=== PATIENT | female | born 1975 | race Caucasian/White ===

== ENCOUNTER → 2020-03-23 12:21 | Outpatient (CLI) | payer OTHER, MEDICAID, SELFPAY ==
[2020-03-23 13:31] LABS: Cholesterol 185 mg/dL (140-199); Glucose 80 mg/dL (70-100); HDL Cholesterol 52 mg/dL (40-60); LDL Cholesterol Calculated 114 mg/dL (<100); Triglycerides 93 mg/dL (35-150)
== END ==
PROVIDERS: PCP Family Medicine; Referring Provider Family Medicine; Visit Provider Family Medicine
DX: Z13.220 Encounter for screening for lipoid disorders (principal); Z13.1 Encounter for screening for diabetes mellitus
CPT/HCPCS: 36415; 80061; 82947

== ENCOUNTER → 2020-07-30 08:54 | Outpatient (CLI) | payer OTHER, MEDICAID, SELFPAY ==
[2020-07-30] MEDS: COVID-19 VACC, Ad26(JANSSEN)/PF 0.5 ML IM (08:59)
== END ==
PROVIDERS: PCP Family Medicine; Visit Provider Internal Medicine
DX: Z23 Encounter for immunization (principal)
CPT/HCPCS: 0031A; 91303